=== PATIENT | female | born 1965 | race American Indian/Alaskan Native ===

== ENCOUNTER 2018-08-26 06:11 | Inpatient (IN) ==
[2018-08-19 11:59] LABS: Blood Urea Nitrogen 11 mg/dl (6-20); Calcium 9.5 mg/dl (8.6-10.4); Carbon Dioxide 23 mmol/L (22-30); Chloride 101 mmol/L (96-108); Glomerular Filtration Rate 64; Glucose 100 mg/dL (70-105); Potassium 4.3 mmol/L (3.3-5.1); Sodium 138 mmol/L (133-145)
[2018-08-19 12:28] LABS: Estimated Average Glucose(eAG) 105 mg/dL; Hemoglobin A1C 5.3 % HGB (4.0-6.0)
[2018-08-19 12:34] LABS: Appearance,Urine CLEAR; Bilirubin,Urine NEG (NEG); Color,Urine YELLOW; Culture Indicated,Urine NO; Glucose,Urine (UA) NEGATIVE (NEG); Ketones,Urine NEG (NEG); Leukocyte Esterase,Urine NEG /uL (NEG); Nitrate,Urine NEG (NEG); Protein,Urine NEG (NEG); Specific Gravity,Urine 1.024 (1.000-1.035); Urine Blood NEG mg/dL (<0.03); Urobilinogen,Urine NEG (NEG)
[2018-08-19 13:12] LABS: Basophils # (Auto) 0.1 K/mcL (0.0-0.3); Basophils % (Auto) 0.7 % (0.0-2.0); Eosinophils # (Auto) 0.2 K/mcL (0.0-0.7); Eosinophils % (Auto) 3.1 % (0.0-7.0); Granulocytes % (Auto) 40.4 % (38.0-78.0); Hematocrit 41.7 % (36.0-48.0); Hemoglobin 13.6 g/dL (12.0-15.0); Lymphocytes # (Auto) 4.1 K/mcL (1.5-4.8); Lymphocytes % (Auto) 50.8 % (15.5-49.0); Mean Cell Volume 92.2 fL (80.0-100.0); Mean Corpuscular HGB Conc 32.6 g/dL (31.0-36.0); Mean Platelet Volume 12.1 fL (7.4-10.4); Monocytes # (Auto) 0.4 K/mcL (0.1-0.9); Platelet Count 197 K/mcL (140-440); RBC 4.52 M/mcL (4.00-5.20)
[~2018-08-26 06:11] MED LIST: 0.9 % SODIUM CHLORIDE 9 ML, KETOROLAC 30 MG, ROPIVACAINE HCL/PF 49.5 ML, EPINEPHrine 0.... IJ SCH; CELECOXIB 200 MG CAPSULE PO SCH; PREGABALIN 75 MG CAPSULE PO SCH; ceFAZolin 2 GM in DEXTROSE 5% IN WATER 50 ML IV SCH; oxyCODONE 10 MG TAB.ER.12H PO SCH
[2018-08-26] MEDS ORDERED: GLYCOPYRROLATE 0.2 MG/ML VIAL IV ONE (09:26)
[2018-08-26] MEDS ORDERED: PROPOFOL 200 MG/20 ML VIAL IV ONE (09:26)
[2018-08-26] MEDS ORDERED: ROPIVACAINE HCL/PF 30 ML VIAL IJ ONE (09:26)
[2018-08-26] MEDS ORDERED: MIDAZOLAM 2 MG/2 ML VIAL IV ONE (09:26)
[2018-08-26] MEDS ORDERED: KETAMINE 100 MG/ML ML IV ONE (09:26)
[2018-08-26] MEDS ORDERED: LIDOCAINE HCL/PF 100 MG/5 ML SYRINGE IV ONE (09:26)
[2018-08-26] MEDS ORDERED: TRANEXAMIC ACID 1,000 MG/10 ML VIAL IV ONE (09:26)
[2018-08-26] MEDS ORDERED: ONDANSETRON 4 MG/2 ML VIAL IV ONE (09:26)
[2018-08-26] MEDS ORDERED: PHENYLEPHRINE 10 MG/ML VIAL IV ONE (09:26)
[2018-08-26] MEDS ORDERED: DEXAMETHASONE 10 MG/ML VIAL IV ONE (09:26)
[2018-08-26] MEDS ORDERED: ONDANSETRON 4 MG/2 ML VIAL IV PRN ×2 (11:01→11:08)
[2018-08-26] MEDS ORDERED: IPRATROPIUM/ALBUTEROL 3 ML AMPUL.NEB NEB PRN (11:01)
[2018-08-26] MEDS ORDERED: ACETAMINOPHEN 1,000 MG/100 ML BOTTLE IV ONE (11:01)
[2018-08-26] MEDS ORDERED: METHOCARBAMOL 1,000 MG/10 ML VIAL IV PRN (11:01)
[2018-08-26] MEDS ORDERED: FLEETS ADULT ENEMA PR PRN (11:08)
[2018-08-26] MEDS ORDERED: HYDROmorphone 2 MG/ML VIAL IV PRN ×2 (11:08→12:30)
[2018-08-26] MEDS ORDERED: MAGNESIUM HYDROXIDE 30 ML ORAL.SUSP PO PRN (11:08)
[2018-08-26] MEDS ORDERED: TRANEXAMIC ACID 1,000 MG/10 ML VIAL IV SCH (11:08)
[2018-08-26] MEDS ORDERED: BISACODYL 10 MG SUPP.RECT PR PRN (11:08)
[2018-08-26] MEDS ORDERED: BENZOCAINE/MENTHOL 1 LOZENGE PO PRN (11:08)
[2018-08-26] MEDS ORDERED: POLYETHYLENE GLYCOL 3350 17 GM PACKET PO PRN (11:08)
--- NOTE | 2018-08-26 11:08 | Brief Operative Note ---
Date of procedure: 08/26/18 Pre-op diagnosis: Right knee severe DJD, retained tibial ACL hardware Post-op diagnosis: same Procedure: Right robotic assisted total knee arthroplasty Hardware removal deep of tibial screw Grafts/Implants: Yes (Susie Triathlon CR 3 femur, 3 tibia, 10mm insert, 31 patella) Anesthesia: spinal, GLMA Findings: severe arthritis Complications: none Surgeon: Magnus Stinson Projection Engineer: Javad Stephenson Estimated blood loss (cc): 30 Specimens Removed/Pathology: none sent Condition: stable Disposition: PACU
[2018-08-26] MEDS ORDERED: LACTATED RINGERS 1,000 ML IV SCH (11:15)
[2018-08-26] MEDS: MEPERIDINE 25 MG/ML SYRINGE IV PRN ×2 (11:39→11:45)
[2018-08-26] MEDS: fentaNYL 100 MCG/2 ML VIAL IV PRN ×4 (11:47→11:53)
[2018-08-26] MEDS ORDERED: HYDROmorphone 2 MG/ML VIAL ONE (12:25)
--- NOTE | 2018-08-26 12:33 | Operative Note ---
DATE OF OPERATION: 08/26/2018 PREOPERATIVE DIAGNOSIS: Right knee severe osteoarthritis with retained ACL hardware. POSTOPERATIVE DIAGNOSIS: Right knee severe osteoarthritis with retained ACL hardware. PROCEDURE PERFORMED: 1. Right robotic-assisted total knee arthroplasty placing a size 3 cruciate retaining femoral component, size 3 tibial baseplate, a 10 mm X3 insert with a 31 mm patellar button. 2. Hardware removal deep of the tibial screw from ACL reconstruction. SURGEON: Magnus Stinson MD PIPELINE EXECUTIVE: Cheng Stephenson PA-C. The PA's assistance was required for the safe and efficient completion of the entire case. This provider's expertise and technical skill were required throughout the case. The PA assisted with preoperative coordination, intraoperative retraction, wound closure, dressing and splint application, as well as postoperative documentation and care coordination. ANESTHESIA: Spinal plus general. DRAINS: None. SPECIMENS: Bone cuts and tibial hardware, which were discarded. BLOOD LOSS: 30 mL COMPLICATIONS: None. POSTOPERATIVE CONDITION: Stable. INDICATIONS FOR SURGERY: A 53-year-old female with longstanding progressive worsening right knee pain. She had history of ACL reconstruction. She had previous left total knee arthroplasty by al with good result. FINDINGS AT SURGERY: She had severe arthritis. Post-implantation showed good limb alignment, patellar tracking, and joint stability. PROCEDURE IN DETAIL: The patient had been seen preoperatively. Informed consent had been obtained after discussion of risks and benefits of surgery. Risks including, but not limited to, bleeding; infection, possibly requiring implant removal and prolonged IV antibiotics; injury to nerves, blood vessels other surrounding structures; anesthetic risks; incomplete or no resolution of symptoms; DVT and pulmonary embolus risks, swelling, stiffness, pain, possibility of needing further revision joint surgeries. She understood and wished to proceed. Correct operative site was marked. The patient was given spinal anesthesia. She was then taken to the operating room and LMA general given. The right lower extremity was then carefully prepped and draped in normal sterile fashion and a timeout was performed verifying patient name, operative site, and plan. Ioban was used to cover all skin surfaces and then Esmarch was used to exsanguinate the extremity and tourniquet was inflated. A midline incision was made with a scalpel through skin and subcutaneous tissue. Hemostasis obtained with Bovie cautery. IrriSept was irrigated and then a medial parapatellar arthrotomy made. Subperiosteal exposure was done of the anterior medial tibia and then osteotome was used to remove bone overgrown of the washer and then screwdriver was used to remove the screw and then osteotome used to lever the spiked washer out. We then removed anterior horns of the menisci as well as transected the ACL. Femoral and tibial checkpoints were placed. Two stab incisions were made over the femur and two over the tibia and bicortical pins placed. The arrays were connected. We did our hip center of rotation check followed by a medial and lateral malleoli identification with the green probe and then double checks of the checkpoints. Blue probe was then used to do our mapping and then rongeur was used to remove osteophytes. We checked our flexion, extension gaps. She was fairly large, about 22 mm on all 4, so we went ahead and moved the tibia quite a bit proximally. We then went ahead, once we liked our [address] around, we used the robotic assistance to make our bone cuts. The patella was cut freehand. The tibia baseplate was placed to externally rotate as bone coverage would allow. This was pinned into place and boss reamer and keel punch used to repair. We then removed this and placed a keeled tibial trial. The femur was elevated and curved osteotome used to remove posterior osteophyte with a curet. We then placed the femoral trial, pinned this into place. Peg holes were drilled, 9 insert trial was placed. The knee was taken into extension. She did have a significant flexion contracture prior and with some manipulation, we were able get her down to about 10 degrees. I went ahead and sized the patella to a 31. This was medialized maximally and then peg holes were drilled. Trial was placed and a limited lateral facetectomy was performed. We checked our patellar tracking, which was good, so we went ahead and removed trial implants while definitive implants were opened. We irrigated the joint with IrriSept. Checkpoints were removed. After a minute we pulse lavaged with saline. Antibiotic cement had been mixed and then we cemented the tibia. Excess cement removed. We then cemented the femur and excess cement removed. We did use a CO2 gun prior to placing the cement to clean and dry the cancellous bone surfaces. We then placed a [address], the knee was taken into extension and a patellar button was cemented. While cement was hardening, we removed checkpoints and the pins for the arrays and the joint was filled with IrriSept. Once cement fully hardened, we flexed the knee up and used the osteotome to remove any excess cement. The 9 insert trial was removed. We injected pain cocktail into the posteromedial capsule. A 10 mm insert was opened. We irrigated the tray with IrriSept and then impacted the insert, carefully verifying it was fully seated. We took the knee through range of motion and was very stable with good range of motion, so we went ahead and did a final another IrriSept irrigation, after a minute pulse lavaged. The knee was then placed in about 45 degrees of flexion. Interrupted #2 FiberWire [id number] were used around the superior quadrant of the patella, interrupted #1 Vicryl [id number] were used around the inferior quadrant, running #1 Vicryl was used for patellar tendon and quad tendon. Final IrriSept irrigation was done, after a minute final pulse lavage, and then 2-0 Monocryl used for subcutaneous and uriel for skin. Xeroform sterile dressings were applied. Tourniquet was released. The patient was awakened, extubated, and transferred to recovery in stable condition. BJB:[email or web address] Job ID: [id number] Doc ID: [id number] Magnus Stinson MD
--- NOTE | 2018-08-26 12:35 | XRay Report ---
CLINICAL INFORMATION: Postsurgical follow-up TECHNIQUE: AP, lateral, and patellar view COMPARISON: None. FINDINGS: Status post right total knee arthroplasty. Femoral and tibial components are in anatomic position. There is postsurgical soft tissue and intra-articular gas. There are skin uriel anteriorly IMPRESSION: Status post right total knee arthroplasty Interpreted and Authenticated by: Scotty Velez 08/26/18
[2018-08-26] MEDS: 0.9 % SODIUM CHLORIDE 1,000 ML IV SCH ×2 (13:10→22:33)
[2018-08-26] MEDS: KETOROLAC 30 MG/ML VIAL IV SCH ×2 (13:10→17:43)
[2018-08-26] MEDS: 0.9 % SODIUM CHLORIDE 10 ML SYRINGE IV SCH (13:10)
[2018-08-26] MEDS: HYDROcodone/APAP 10/325MG TABLET PO PRN ×3 (14:08→23:11)
[2018-08-26] MEDS: ceFAZolin 1 GM VIAL IV SCH (17:42)
[2018-08-26] MEDS: NICOTINE 7 MG PATCH TOPICAL SCH (17:44)
[2018-08-26] MEDS: CARVEDILOL 3.125 MG TABLET PO SCH (17:44)
[2018-08-26] MEDS: TOPIRAMATE 25 MG TABLET PO SCH (20:38)
[2018-08-26] MEDS: ASPIRIN 81 MG TAB.CHEW PO SCH (20:38)
[2018-08-26] MEDS: sulfaSALAzine 500 MG TABLET PO SCH (20:38)
[2018-08-26] MEDS: DOCUSATE SODIUM 100 MG CAPSULE PO SCH (20:38)
[2018-08-26] MEDS ORDERED: SENNOSIDES 1 TABLET PO SCH ×2 (21:00)
[2018-08-26] MEDS ORDERED: CETIRIZINE 10 MG TABLET PO SCH (21:00)
[2018-08-27] MEDS: KETOROLAC 30 MG/ML VIAL IV SCH ×2 (00:12→05:03)
[2018-08-27] MEDS: ceFAZolin 1 GM VIAL IV SCH (00:13)
[2018-08-27] MEDS: 0.9 % SODIUM CHLORIDE 10 ML SYRINGE IV SCH ×2 (00:13→05:03)
[2018-08-27] MEDS: HYDROcodone/APAP 10/325MG TABLET PO PRN ×2 (05:09→10:33)
[2018-08-27] MEDS: TOPIRAMATE 25 MG TABLET PO SCH (07:48)
[2018-08-27] MEDS: CARVEDILOL 3.125 MG TABLET PO SCH (07:48)
[2018-08-27] MEDS: DOCUSATE SODIUM 100 MG CAPSULE PO SCH (07:48)
[2018-08-27] MEDS: ASPIRIN 81 MG TAB.CHEW PO SCH (07:48)
[2018-08-27] MEDS: sulfaSALAzine 500 MG TABLET PO SCH (07:48)
--- NOTE | 2018-08-27 08:29 | Discharge Summary ---
Providers - Providers Patient information: Note initiated : 08/27/18 at 8:26 am Service Date, if different from initiated Date: [] Patient: Quiana Castaneda 53 y/o F admitted on 08/26/18 for Right Total Knee Arthroplasty Rafita w/Removal of. Chief Complaint: [] Discharge date: 08/27/18 Hospitalization Hospital course: Pt was admitted for a R TKA. Pt underwent the procedure on the day of admission. Pt spent one night on the floor for IV pain meds, IV abx, and PT. Pt discharged post-op day one. Will attend out-ot PT. Will take ASA for DVT prophylaxis. Discharge diagnosis: R knee OA Exam - Exam Clean and dry: Yes Weight bearing status: as tolerated Ortho Discharge - TKA - Patient Instructions Diet: Regular Diet Activity: activity as tolerated Total Knee Protocol: For Total Knee: Start ROM JR with stationary bike or rocking chair. Work on gaining full extension of knee. Posterior dislocation precautions provided. Hip abductor strengthening and gait training instructions provided. Apply Cryocuff as instructed. Dressing Care: May shower in 2 days - Follow Up Plan Follow Up Appointments: Javad Stephenson PA-C [Physician [employer] Officer] - 09/10/18 8:40 am Disposition: Home, Self-Care Prognosis: Good Rehab Potential: Good Overall status at discharge: patient is progressing back to baseline - Orders For Discharge Prescriptions: Aspirin 81 mg PO BID #30 tab.chew HYDROcodone/APAP 10/325MG [Shumway 10-325Mg] 1 - 2 tab PO Q4HP PRN #80 tab PRN Reason: Pain Level 3-6 Pending Studies Resuscitation Status Full Code Diet Regular Diet Start FriAug 26 1109 Hydrocodone Bitart/Acetaminophen (Shumway 10/325mg) 0 tab PO Q4HP PRN PRN Reason: PAIN LEVEL 3-6 Last Admin: 08/27/18 05:09 Dose: 2 tab Documented by: Admin: 08/26/18 23:11 Dose: 2 tab Documented by: Admin: 08/26/18 19:01 Dose: 2 tab Documented by: Admin: 08/26/18 14:08 Dose: 2 tab Documented by: ALBINA Aspirin (Aspirin) 81 mg PO BID JODI Last Admin: 08/27/18 07:48 Dose: 81 mg Documented by: Admin: 08/26/18 20:38 Dose: 81 mg Documented by: CANDY [facility] Last Admin: 08/27/18 07:48 Dose: 9.375 mg Documented by: Admin: 08/26/18 17:44 Dose: Not Given Documented by: ALBINA Cetirizine HCl (Zyrtec) 10 mg PO [facility] Last Admin: 08/26/18 20:38 Dose: 10 mg Documented by: CANDY Cyanocobalamin (Vitamin B-12) 1,000 mcg PO DAILY [facility] Last Admin: 08/27/18 07:48 Dose: 1,000 mcg Documented by: SVITLANA Docusate Sodium (Colace) 100 mg PO BID [facility] Last Admin: 08/27/18 07:48 Dose: 100 mg Documented by: Admin: 08/26/18 20:38 Dose: 100 mg Documented by: CANDY Folic Acid (Folic Acid) 1 mg PO DAILY [facility] Last Admin: 08/27/18 07:48 Dose: 1 mg Documented by: SVITLANA Hydromorphone HCl (Dilaudid) 0 mg IV Q2HP PRN PRN Reason: PAIN LEVEL > 6 Last Admin: 08/26/18 15:50 Dose: 0.5 mg Documented by: ALBINA Hydromorphone HCl (Dilaudid) 0.5 mg IV Q15MIN PRN PRN Reason: PAIN LEVEL > 6 Last Admin: 08/26/18 12:30 Dose: 0.5 mg Documented by: [email or web address] Ketorolac Tromethamine (Toradol) 30 mg IV Q6 [facility] Stop: 08/28/18 06:01 Last Admin: 08/27/18 05:03 Dose: 30 mg Documented by: Admin: 08/27/18 00:12 Dose: 30 mg Documented by: Admin: 08/26/18 17:43 Dose: 30 mg Documented by: Admin: 08/26/18 13:10 Dose: 30 mg Documented by: ALBINA Lisinopril (Zestril) 5 mg PO DAILY [facility] Last Admin: 08/27/18 07:49 Dose: Not Given Documented by: SVITLANA Magnesium Hydroxide (Milk Of Magnesia) 30 ml PO BIDP PRN PRN Reason: Constipation Last Admin: 08/27/18 07:48 Dose: 30 ml Documented by: MGARRARDEN Magnesium Oxide (Magnesium Oxide) 400 mg PO DAILY [facility] Last Admin: 08/27/18 07:48 Dose: 400 mg Documented by: ARRARDEN Nicotine (Nicoderm) 7 mg TOPICAL DAILY@1000 [facility] Last Admin: 08/26/18 17:44 Dose: 7 mg Documented by: ALBINA Senna (Senokot) 2 tab PO HS [facility] Last Admin: 08/26/18 20:38 Dose: 2 tab Documented by: CANDY Sodium Chloride (Saline Flush) 10 ml IV Q8 [facility] Last Admin: 08/27/18 05:03 Dose: 10 ml Documented by: Admin: 08/27/18 00:13 Dose: 10 ml Documented by: Admin: 08/26/18 13:10 Dose: 10 ml Documented by: ALBINA Sulfasalazine (Sulfasalazine) 1,000 mg PO BID [facility] Last Admin: 08/27/18 07:48 Dose: 1,000 mg Documented by: Admin: 08/26/18 20:38 Dose: 1,000 mg Documented by: CANDY Topiramate (Topamax) 25 mg PO BID [facility] Last Admin: 08/27/18 07:48 Dose: 25 mg Documented by: Admin: 08/26/18 20:38 Dose: 25 mg Documented by: CANDY Venlafaxine HCl (Effexor Xr) 150 mg PO DAILY [facility] Last Admin: 08/27/18 07:48 Dose: 150 mg Documented by: MGROMAN Vitamin D (Vitamin D3) 1,000 unit PO DAILY [facility] Last Admin: 08/27/18 07:48 Dose: 1,000 unit Documented by: SVITLANA Shift Summary 08/27/18 03:42 Shift Summary by Cyn Juan A&Samantha x4. Pt is very steady on her feet. She has not needed any assistance getting into or out of bed or repositioning. She uses a FWW and SBA to the BR. Pt is receiving scheduled toradol and Shumway Q4H PRN for pain. Pt has had very minimal complaints of pain, but did complain about having a difficult time sleeping. VSS on RA. Pt is usually on B/P meds, but her BP has been in the low 100s systolically so those medications have been held. IV to the L wrist is SL and p atent. Dressing to the R knee is C/D/I. Initialized on 08/27/18 03:42 - END OF NOTE
[2018-08-27] MEDS ORDERED: VITAMIN D3 1,000 UNIT TABLET PO SCH (09:00)
[2018-08-27] MEDS ORDERED: MAGNESIUM OXIDE 400 MG TABLET PO SCH (09:00)
[2018-08-27] MEDS ORDERED: FOLIC ACID 1 MG TABLET PO SCH (09:00)
[2018-08-27] MEDS ORDERED: LISINOPRIL 5 MG TABLET PO SCH (09:00)
[2018-08-27] MEDS ORDERED: VENLAFAXINE 150 MG CAP.XL.24H PO SCH (09:00)
[2018-08-27] MEDS ORDERED: CYANOCOBALAMIN (VITAMIN B-12) 500 MCG TABLET PO SCH (09:00)
[2018-08-27] MEDS: NICOTINE 7 MG PATCH TOPICAL SCH (09:16)
[2018-08-27] MEDS ORDERED: FLUCONAZOLE 150 MG TABLET PO ONE (09:42)
[2018-08-28] MEDS ORDERED: ACYCLOVIR 400 MG TABLET PO SCH (09:00)
[2018-09-09] MEDS ORDERED: CERTOLIZUMAB PEGOL 200 MG SQ SCH (09:00)
== END 2018-08-27 10:55 | disposition home or self-care (01) | DRG 470 ==
LOC: MEDSUR 06:11
PROVIDERS: ADMIT Orthopaedic Surgery; ATTEND Orthopaedic Surgery